=== PATIENT | male | born 1965 | race Caucasian/White ===

== ENCOUNTER 2022-04-04 07:56 | Day surgery (SDC) | payer OTHER ==
[2022-04-03 08:35] VITALS: BMI 29.5
[~2022-04-04 07:56] MED LIST: LACTATED RINGERS 1,000 ML IV SCH
[2022-04-04 08:22] LABS: Glucose,Whole Blood 99 mg/dL (70-110)
[2022-04-04 08:25] VITALS: TEMP 97
[2022-04-04] MEDS ORDERED: PROPOFOL 10 MG/ML 20 ML VIAL IV ONE (09:01)
--- NOTE | 2022-04-04 09:06 | P.GSHP ---
History of Present Illness H&P Date: 04/04/22 Chief Complaint: Screening colonoscopy This a 57-year-old male presents today for screening colonoscopy. Patient's never had a colonoscopy before. He denies any significant GI complaints. Past Medical History Past Medical History: Cancer, Hypertension Additional Past Medical History / Comment(s): PROSTATE CANCER. RECENT ANTIBIOTICS AND STERIOD DOSE PACK FOR EAR INFECTIONS History of Any Multi-Drug Resistant Organisms: None Reported Past Surgical History: No Surgical Hx Reported Additional Past Surgical History / Comment(s): SEED IMPLANTED FOR PROSTATE CANCER Past Anesthesia/Blood Transfusion Reactions: No Reported Reaction Additional Past Anesthesia/Blood Transfusion Reaction / Comment(s): no family problems w/anesthesia Smoking Status: Current every day smoker - Past Family History Mother Family Medical History: No Reported History Medications and Allergies Home Medications Medication Instructions Recorded Confirmed Type amLODIPine [Norvasc] 10 mg PO DAILY 04/03/22 04/04/22 History Allergies Allergy/AdvReac Type Severity Reaction Status Date / Time No Known Allergies Allergy Verified 04/04/22 08:25 Surgical - Exam Vital Signs Temp Pulse Resp BP Pulse Ox 97 F L 75 16 175/86 96 04/04/22 08:16 04/04/22 08:16 04/04/22 08:16 04/04/22 08:16 04/04/22 08:16 - General well developed, well nourished, no distress - Eyes PERRL - ENT normal pinna - Neck no masses - Respiratory normal expansion - Cardiovascular Rhythm: regular - Abdomen Abdomen: soft, non tender Assessment and Plan Assessment: We'll perform screening colonoscopy
--- NOTE | 2022-04-04 09:18 | P.OP ---
Date of Procedure: 04/04/22 Preoperative Diagnosis: Screening colonoscopy Postoperative Diagnosis: Diverticulosis Procedure(s) Performed: Colonoscopy Anesthesia: MAC Surgeon: Diogenes Enriquez Pathology: none sent Condition: stable Disposition: PACU Description of Procedure: The patient's placed on the endoscopy table in the lateral position. He received IV sedation. Digital rectal exam was performed. Is revealed no abnormalities. The prostate was symmetrical without nodules. The flexible colonoscope was then placed patient anus and passed throughout the entire colon. The ileocecal valve was visualized. Cecum, ascending and transverse colon appeared normal. The descending and sigmoid colon had moderate diverticular jaime nges. There was no evidence of any diverticulitis. The scope was brought back the rectum this appeared normal. Scope was then withdrawn for patient.
[2022-04-04 09:40] VITALS: BP 160/83; PULSE 65; RESP 16
== END 2022-04-04 10:22 | disposition home or self-care (01) ==
LOC: ORWHC2ENDO 07:56
PROVIDERS: ATTEND Surgery
DX: Z12.11 Encounter for screening for malignant neoplasm of colon (principal); K57.30 Diverticulosis of large intestine without perforation or abscess without bleeding; I10 Essential (primary) hypertension; C61 Malignant neoplasm of prostate; F17.200 Nicotine dependence, unspecified, uncomplicated; Z85.46 Personal history of malignant neoplasm of prostate; Z79.83 Long term (current) use of bisphosphonates
CPT/HCPCS: 45378; J2704